=== PATIENT | male | born 1990 | race Caucasian/White ===

== ENCOUNTER 2017-12-19 03:14 | Emergency (ER) | payer MEDICAID, OTHER ==
[~2017-12-19] VITALS: Ht 177.8 cm; Wt 72.6 kg
[2017-12-19 03:16] VITALS: BP 144/95
--- NOTE | 2017-12-19 03:16 | NUR ---
TO BED # 5 AMBULATORY , REPORT GIVEN TO CATE BROTHERS.
--- NOTE | 2017-12-19 03:20 | NUR ---
PATIENT IS A 27 Y/O MALE WHO PRESENTS TO THE ED WHO STATES HE HAD AN OVERDOSE. PT REPORTS THAT HE DID HEROINE AND TOOK ASPIRIN X80 PILLS. PT DENIES PAIN AT THIS TIME. PT DENIES CP, SOB, N/V/D. PT AAOX4, RR EVEN/UNLABORED. PT REPOSITIONED FOR COMFORT, BED IN LOWEST POSITION. ER MD DR. CAPONE NOTIFIED. WILL CONTINUE TO MONITOR.
[2017-12-19] MEDS ORDERED: METOCLOPRAMIDE 10 MG/2 ML INJ VIAL IVP ONE (03:25)
[2017-12-19] MEDS ORDERED: NACL 0.9% 2,000 ML IV ONE (03:25)
--- NOTE | 2017-12-19 03:25 | NUR ---
REPORTED TO POISON CONTROL AND SPOKEN TO MINA, WITH ORDERS NOTED BY ERMSheng, FOR LAB WORKS, IF SALICYLATE IS HIGH IVF HYDRATION AT 100-200MLS / HOUR. IF GREATER THAN 35 MG/DL, GIVE IVF WITH SODIUM BICARBONATE AT 100-200MLS /HR. ASPIRIN LEVEL EVERY 2-3 HOURS, CHEM 7, ABG NOW , THEN EVERY 2-3 HOURS. CALL FOR ANY CHANGES.
--- NOTE | 2017-12-19 03:33 | NUR ---
Dr. Montes evaluating patient at bedside.
[2017-12-19 03:43] LABS: BASOPHILS # (AUTO) 0.1 K/uL (0.00-0.22); BASOPHILS % (AUTO) 0.7 % (0.0-2.0); EOSINOPHILS # (AUTO) 0.1 K/uL (0-0.4); EOSINOPHILS % (AUTO) 0.8 % (0.0-4.0); HEMATOCRIT 44.8 % (36-52); HEMOGLOBIN 15.2 g/dL (12.0-18.0); LYMPHOCYTES # (AUTO) 2.2 K/uL (2.0-11.5); MEAN CORPUSCULAR HEMOGLOBIN 30 pg (27-31); MEAN CORPUSCULAR HGB CONC 34 g/dL (33-37); MEAN CORPUSCULAR VOLUME 87.5 fL (80-94); MONOCYTES % (AUTO) 8.2 % (1.7-9.3); NEUTROPHILS # (AUTO) 9.3 K/uL (1.8-7.7); NEUTROPHILS % (AUTO) 73.3 % (42.2-75.2); PLATELET COUNT (AUTO) 356 K/uL (140-450); RED BLOOD CELL COUNT(AUTO) 5.11 MIL/uL (4.20-6.10); RED CELL DISTRIBUTION WIDTH 12.8 % (11.6-13.7); WHITE BLOOD COUNT (AUTO) 12.7 K/uL (4.8-10.8)
--- NOTE | 2017-12-19 03:45 | NUR ---
PATIENT BECOMING MORE AGITATED. PT EXPRESSING WISH TO HAVE HIS STOMACH PUMPED. PT POSITIONING SELF AT NURSES STATION. SECURITY CALLED TO ED. PT EDUCATED ON MD PROTOCOLS. REFUSING FURTHER TREATMENT AT THIS TIME. PT ELOPED FROM FACILITY.
[2017-12-19 03:52] LABS: ANION GAP 13.3 (8-16); CARBON DIOXIDE 28.6 mmol/L (21-32); CHLORIDE 106 mmol/L (98-107); CREATININE 0.9 mg/dL (0.7-1.3); GFR ARICAN-AMERICAN 131 mL/min (>90); GLUCOSE 114 mg/dL (74-106); POTASSIUM 3.9 mmol/L (3.5-5.1); SODIUM SERUM 144 mmol/L (136-145); UREA NITROGEN, BLOOD 12 mg/dL (7-18)
--- NOTE | 2017-12-19 03:53 | NUR ---
PT UNCOOPERATIVE REFUSING TX AT THIS TIME, PT ESCORTED OUT OF ED BY SECURITY
[2017-12-19 03:58] LABS: ACETAMINOPHEN < 0.5 ug/ml (10-30); ALBUMIN 4.1 g/dL (3.4-5.0); ASPARTATE AMINOTRANSFERASE 44 U/L (15-37); SALICYLATE < 2.8 mg/dL (2.8-20.0); TOTAL BILIRUBIN 0.7 mg/dL (0.0-1.0)
--- NOTE | 2017-12-19 04:12 | NUR ---
ARMEN FROM POISON CONTROL CALLED UP AND ASKING THE PATIENT , AND HE ELOPED. HE REFUSES TREATMENT . ARMEN ADVISES TO CALL PD, TO GET THE PATIENT. MAIA NOTED.
--- NOTE | 2017-12-19 04:15 | NUR ---
CONTACTED STEVE AND SHRADDHA DÍAZ REGARDING PT TO BE ON LOOKOUT AND BRING PT BACK TO ED FOR FURTHER TREATMENT.
== END 2017-12-19 03:45 | disposition left against medical advice (07) ==
LOC: MED 03:14
DX: T39.011A Poisoning by aspirin, accidental (unintentional), initial encounter (principal); F15.90 Other stimulant use, unspecified, uncomplicated; F11.90 Opioid use, unspecified, uncomplicated; Y92.89 Other specified places as the place of occurrence of the external cause
CPT/HCPCS: 36415; 80053; 84484; 85025; 93005; 99285; G0480; G0482; J2765